=== PATIENT | female | born 1970 | race American Indian/Alaskan Native ===

== ENCOUNTER 2016-05-31 20:19 | Emergency (ER) | payer MEDICAID ==
[2016-06-01] MEDS ORDERED: TESSALON PERLES PO ONE (03:27)
[2016-06-01] MEDS ORDERED: DUONEB 0.5 MG-3 MG/3 ML SOLN IH ONE (03:27)
[2016-06-01] MEDS ORDERED: MUCINEX ER PO ONE (03:27)
[2016-06-01] MEDS ORDERED: DELTASONE PO ONE (03:27)
[2016-06-01] MEDS ORDERED: MOTRIN PO ONE (03:27)
--- NOTE | 2016-06-01 04:16 | Emergency Department Report ---
HPI - General Chief Complaint: Upper Respiratory Infection Time Seen by Provider: 06/01/16 02:41 - HPI HPI: The patient is a 46-year-old female who presents for evaluation of cough and dyspnea. The patient states a history of asthma. She reports 2 days of moderate in severity coughing, and progressive dyspnea, moderate in severity for the past one day, exacerbated with coughing or exertion, and improved with rest. She has a secondary complaint of aching in quality bilateral chest wall pain elicited with coughing, and relieved with rest. She states that it dyspnea is consistent with previous episodes of asthma exacerbation. The patient denies chills, night sweats, syncope, hemoptysis, unilateral leg swelling, oral contraceptive use, recent immobilization, history of DVT or PE, recent cancer. ED Past Medical Hx - Past Medical History Previous Medical History?: Yes Hx Asthma: Yes (LAST ATTACK 4 MTHS AGO) Hx HIV: No - Surgical History Past Surgical History?: No - Social History Smoking Status: Never Smoker - Medications Home Medications: Home Medications Medication Instructions Recorded Confirmed Last Taken Type Albuterol *Only Ed* [Proventil 2.5 mg IH Q6HR PRN 12/11/15 12/11/15 12/23/15 09 :00 History 0.5% NEBS] Fluticasone (Nf) [Flovent Hfa(Nf)] 2 puff IH BID 12/11/15 12/11/15 12/23/15 09: 00 History Fluticasone [Flonase] 1 spray NS QDAY 12/11/15 12/11/15 12/23/15 09:00 History Fluticasone/Salmeterol [Advair 1 puff IH BID 12/11/15 12/11/15 12/23/15 09:00 History Diskus 250-50 mcg] Loratadine [Claritin] 10 mg PO DAILY 12/11/15 12/11/15 12/23/15 09:00 History Montelukast [Singulair] 10 mg PO QDAY 12/11/15 12/11/15 12/23/15 09:00 History ALBUTEROL Inhaler [ProAir HFA 2 puff IH QID PRN #1 inhalation 06/01/16 Unknown Rx Inhaler] Cyclobenzaprine HCl [Flexeril 5 MG 5 mg PO Q8HR PRN #12 tab 06/01/16 Unknown Rx TAB] Ibuprofen [Motrin] 800 mg PO Q8HR PRN #14 tablet 06/01/16 Unknown Rx guaiFENesin [Mucinex] 600 mg PO Q6HR #20 tab.er.12h 06/01/16 Unknown Rx predniSONE [Deltasone] 20 mg PO QDAY #5 tab 06/01/16 Unknown Rx ED Review of Systems ROS: Stated complaint: ASTHMA Other details as noted in HPI Constitutional: denies: fever ENT: denies: throat or neck pain Respiratory: reports cough, shortness of breath Cardiovascular: denies: chest pain Endocrine: denies unexplained weight loss or gain Gastrointestinal: denies: abdominal pain, nausea Genitourinary: denies: dysuria Musculoskeletal: denies: leg swelling Skin: denies: rash Neurological: denies: headache Hematological/Lymphatic: denies: easy bleeding or easy bruising Psych: denies sadness or hopelessness Physical Exam - Physical Exam Vital Signs: Vital Signs 05/31/16 06/01/16 20:36 02:08 Temperature 98.5 F 98.2 F Pulse Rate 113 H 120 H Respiratory 20 18 Rate Blood Pressure 138/91 Blood Pressure 140/76 [Left] O2 Sat by Pulse 97 96 Oximetry Physical Exam: General: well-nourished, well-developed, no acute distress Head: Normocephalic, atraumatic Eyes: normal sclera ENT: Mucous membranes are pink and moist , bilateral nasal congestion present Neck: trachea midline, neck supple, No neck stiffness, no cervical adenopathy Respiratory: Mildly diminished breath sounds and expiratory wheezing present throughout lung matute bilaterally, no costal retractions, no respiratory distress Cardio: S1 and S2 present, no murmurs, rubs, gallops, capillary refill is brisk Abdomen: Normoactive bowel sounds, soft abdomen, no rigidity, no guarding or rebound tenderness Chest WALL/Back: No tenderness to palpation of the chest wall, no CVA tenderness with percussion Musc: No pitting edema Skin: No rash Neuro: no facial drooping, normal speech Psych: Normal affect ED Course Vital Signs 05/31/16 06/01/16 20:36 02:08 Temperature 98.5 F 98.2 F Pulse Rate 113 H 120 H Respiratory 20 18 Rate Blood Pressure 138/91 Blood Pressure 140/76 [Left] O2 Sat by Pulse 97 96 Oximetry ED Medical Decision Making - Medical Decision Making The patient was seen and examined by myself. The patient is placed on a patient monitor and continuous pulse ox. On initial evaluation, the patient was found to be in no distress. Evaluation orders were placed. The patient is given a DuoNeb breathing treatment and prednisone for txt of COPD. she is given a tablet of Motrin for her pain, and Tessalon Perles for her cough. Chest x-ray negative for focal consolidation, pleural effusions, pulmonary congestion, pneumothorax, or other acute cardio pulmonary disease process. The patient was reevaluated and reported that their symptoms were markedly improved. The patient is stable for discharge with outpatient follow-up. The patient is given follow-up and return instructions. The patient expressed understanding and agreed with the plan. The patient is given a prescription for prednisone. The patient is discharged in stable condition. Critical care attestation.: If time is entered above; I have spent that time in minutes in the direct care of this critically ill patient, excluding procedure time. ED Disposition Clinical Impression: Acute chest wall pain Acute asthma exacerbation Qualifiers: Asthma severity: mild intermittent Qualified Code(s): J45.21 - Mild intermittent asthma with (acute) exacerbation Upper respiratory infection Qualifiers: URI type: unspecified URI Qualified Code(s): J06.9 - Acute upper respiratory infection, unspecified Disposition: DISCHARGED TO HOME OR SELFCARE Is pt being admited?: No Does the pt Need Aspirin: No Condition: Stable Instructions: Asthma (ED), Chest Pain (ED), Upper Respiratory Infection (ED) Referrals: MEL MCKEON PA [Primary Care Provider] - 3-5 Days Time of Disposition: 03:38
[2016-06-01 05:31] VITALS: BP 112/67
--- NOTE | 2016-06-01 07:17 | XRay Report ---
ROUTINE CHEST, TWO VIEWS: HISTORY: Cough. The trachea, heart, mediastinal contour, lung matute and bony thorax are unremarkable. IMPRESSION: Unremarkable chest x-ray.
== END 2016-06-01 05:15 | disposition home or self-care (01) ==
LOC: ED 20:19
DX: J45.21 Mild intermittent asthma with (acute) exacerbation (principal); J06.9 Acute upper respiratory infection, unspecified; R07.89 Other chest pain
CPT/HCPCS: 71020; 99284; J7512

== ENCOUNTER 2017-02-25 12:21 | Emergency (ER) | payer MEDICAID ==
[2017-02-25 12:28] VITALS: BP 147/84
== END 2017-02-25 16:00 | disposition left against medical advice (07) ==
LOC: ED 12:21
DX: M25.562 Pain in left knee (principal); Z53.21 Procedure and treatment not carried out due to patient leaving prior to being seen by health care provider